=== PATIENT | female | born 1975 | race Caucasian/White ===

== ENCOUNTER → 2016-06-27 | Outpatient (CLI) | payer BC, OTHER ==
--- NOTE | 2016-06-27 09:56 | CT ---
EXAMINATION TYPE: CT brain wo con DATE OF EXAM: 06/27/2016 9:28 AM COMPARISON: NONE HISTORY: Concussion CT DLP: 1147 mGycm Automated exposure control for dose reduction was used. Helical acquisition through the brain. FINDINGS: There is no acute intracranial hemorrhage, mass effect, or midline shift identified. The ventricles and sulci are within normal limits in size. The globes are intact and the visualized sinuses are semaj ar. IMPRESSION: No acute intracranial hemorrhage, mass effect, or midline shift is seen.
== END | disposition home or self-care (01) ==
LOC: RADCTMAIN 09:10
PROVIDERS: ATTEND Family Medicine
DX: S06.0X0A Concussion without loss of consciousness, initial encounter (principal)
CPT/HCPCS: 70450

== ENCOUNTER → 2016-07-17 | Outpatient (CLI) | payer BC, OTHER ==
--- NOTE | 2016-07-17 14:19 | FL ---
EXAMINATION: Cervical and Thoracic Esophagram DATE OF EXAM: 07/17/2016 11:12 AM CLINICAL INDICATION: 41-year-old female with skull and lumps removed 2 months ago, patient stated lupe e type of cysts. Patient complaining of throat swelling sensation. COMPARISON: Total Fluoroscopy Time: 3.9 minutes FINDINGS: The swallowing mechanism is normal and hypopharyngeal anatomy is preserved. The cervical and thoracic portions have a normal course and caliber and normal motility. The mucosa is normal and no persistent filling defect is encountered. No hiatal hernia is present. Gastroesophageal reflux is not seen during the course of the exam. IMPRESSION: No specific abnormality identified on esophagram.
== END | disposition home or self-care (01) ==
LOC: RADFLWHC 10:09
PROVIDERS: ATTEND Otolaryngology
DX: R13.10 Dysphagia, unspecified (principal); R07.0 Pain in throat
CPT/HCPCS: 74220

== ENCOUNTER → 2016-08-08 | Outpatient (CLI) | payer BC ==
--- NOTE | 2016-08-08 08:51 | US ---
EXAMINATION TYPE: US abdomen complete DATE OF EXAM: 08/08/2016 8:37 AM COMPARISON: NONE CLINICAL HISTORY: R10.9 Abd Pain. LUQ & LLQ pain per patient EXAM MEASUREMENTS: Liver Length: 10.9 cm Gallbladder Wall: 0.2 cm CBD: 0.4 cm Spleen: 9.9 cm Right Kidney: 11.0 x 3.9 x 5.6 cm Left Kidney: 11.1 x 6.0 x 5.6 cm Pancreas: visualized portions wnl Liver: wnl Gallbladder: No stones seen Evidence for sonographic Al's sign: No CBD: wnl Spleen: wnl Right Kidney: No hydronephrosis or masses seen Left Kidney: No hydronephrosis or masses seen Upper IVC: wnl Abd Aorta: wnl The liver is homogenous. The intrahepatic portion of the IVC and proximal abdominal aorta are within normal limits. There is no evidence of cholelithiasis. Common bile duct is unremarkable. The visu alized portions of the pancreas are homogenous. The spleen is unremarkable. Kidneys are symmetric a nd free of hydronephrosis. No renal lesions are seen. IMPRESSION: No significant abnormality seen.
== END | disposition home or self-care (01) ==
LOC: RADUSWWP 08:18
PROVIDERS: ATTEND Family Medicine
DX: R10.9 Unspecified abdominal pain (principal)
CPT/HCPCS: 76700

== ENCOUNTER → 2016-08-23 | Outpatient (CLI) | payer BC ==
--- NOTE | 2016-08-23 11:44 | NM ---
EXAMINATION TYPE: NM hepatobiliary w EF DATE OF EXAM: 08/23/2016 9:28 AM COMPARISON: NONE INDICATION: Abdomen pain TECHNIQUE: After the intravenous administration of 5.4 mCi Tc 99m Mebrofenin hepatobiliary scintigrap hy is performed. Images were obtained immediately post injection. FINDINGS: There is prompt uptake and excretion of radiotracer by the liver. Extrahepatic ducts are identified at 6 minutes. The gallbladder is visualized within 8 minutes. Small bowel activity is noted within 34 minutes. At one hour 8 ounces of oral ensure plus is given to mimic CCK and gallbladder ejection fraction is c alculated at 72 %, which is in the normal range. (Normal >35% and <80%.). IMPRESSION: 1. Normal hepatobiliary scan
== END | disposition home or self-care (01) ==
LOC: RADNMMAIN 07:07
PROVIDERS: ATTEND Family Medicine
DX: R10.9 Unspecified abdominal pain (principal)
CPT/HCPCS: 78226; A9537

== ENCOUNTER → 2016-08-23 | Outpatient (CLI) | payer BC | END | disposition home or self-care (01) | LOC: LABWHC1 09:34 | PROVIDERS: ATTEND Otolaryngology | DX: E06.9 Thyroiditis, unspecified (principal) | CPT/HCPCS: 36415; 84439; 84443; 86376 ==

== ENCOUNTER → 2017-01-25 | Outpatient (CLI) | payer BC ==
[2017-01-25 08:00] LABS: Basophils % (A) 1 %; CH 35.1; CHCM 32.5; Eosinophils # (A) 0.1 k/uL (0-0.7); Eosinophils % (A) 1 %; HCT 42.6 % (34.0-46.0); HDW 2.15; HGB 13.8 gm/dL (11.4-16.0); Luc # (Auto) 0.12; Luc % (Auto) 3; Lymphocytes # (A) 1.3 k/uL (1.0-4.8); Lymphocytes % (A) 34 %; MCH 35.2 pg (25.0-35.0); MCHC 32.4 g/dL (31.0-37.0); MCV 108.7 fL (80.0-100.0); Macrocytosis Moderate; Mean Platelet Volume 8.8; Monocytes # (A) 0.3 k/uL (0-1.0); Monocytes % (A) 9 %; Neutrophils # (A) 1.9 k/uL (1.3-7.7); Neutrophils % (A) 51 %; RBC 3.92 m/uL (3.80-5.40); RDW 13.7 % (11.5-15.5); WBC 3.7 k/uL (3.8-10.6); WBC (Perox) 3.84
== END | disposition home or self-care (01) ==
LOC: LABPAT 07:03
PROVIDERS: ATTEND Obstetrics & Gynecology
DX: Z01.812 Encounter for preprocedural laboratory examination (principal)
CPT/HCPCS: 85025

== ENCOUNTER 2017-01-30 06:30 | Day surgery (SDC) | payer BC ==
[2017-01-23 11:49] VITALS: BMI 26.2
[~2017-01-30 06:30] MED LIST: DEXAMETHASONE SOD PHOSPHATE 10 MG/ML 1 ML VIAL IV ONE; LACTATED RINGERS 1,000 ML IV SCH; MIDAZOLAM 2 MG/2 ML VIAL IV PRN; Pre Op ABX Message 1 EACH MISC MISCELLANE ONE; SCOPOLAMINE 1.5MG/72HR PATCH TRANSDERM ONE
[2017-01-30] MEDS ORDERED: LIDOCAINE 1% 20 ML VIAL (10MG/ML) FOR IV START INTRADERMA ONE (07:00)
[2017-01-30] MEDS: ONDANSETRON 4 MG/2 ML VIAL IVP ONE ×2 (07:03→11:28)
[2017-01-30] MEDS ORDERED: fentaNYL (PF) 50 MCG/ML 2 ML AMP ONE (07:33)
[2017-01-30] MEDS ORDERED: GLYCOPYRROLATE 0.2 MG/ML 2 ML VIAL ONE ×2 (07:33)
[2017-01-30] MEDS ORDERED: LIDOCAINE 1% INJ 10MG/ML (20 ML MDV) ONE (07:33)
[2017-01-30] MEDS ORDERED: PROPOFOL 10 MG/ML 20 ML VIAL IV ONE (07:33)
[2017-01-30] MEDS ORDERED: KETOROLAC 30 MG/ML 1 ML VIAL ONE (07:33)
[2017-01-30] MEDS ORDERED: SUCCINYLCHOLINE CHLORIDE 100 MG/5 ML SYR IV ONE (07:33)
[2017-01-30] MEDS ORDERED: NEOSTIGMINE 1 MG/ML 10 ML VIAL ONE (07:33)
[2017-01-30] MEDS ORDERED: ROCURONIUM BROMIDE 10 MG/ML 10 ML VIAL IV ONE (07:33)
[2017-01-30] MEDS ORDERED: MIDAZOLAM 2 MG/2 ML VIAL ONE (07:33)
[2017-01-30] MEDS ORDERED: HYDROmorphone (PF) 1 MG/ML ONE (07:33)
--- NOTE | 2017-01-30 07:33 | P.HPOB ---
History of Present Illness H&P Date: 01/30/17 Chief Complaint: family planning: menorrhagia Patient is a 41-year-old female with heavy vaginal bleeding and desire for permanent sterilization. Risks/benefits/alternatives to a left scopic tubal with Filshie clips and D&C with NovaSure have been discussed with patient in detail including but not limited to damage to bladder, bowel, vascular injuries , nerve injuries, bleeding, infection, thermal injuries, pain. Her symptoms have been present over the last several months with irregular heavy periods. She is noted to have her menses come every approximately 3 weeks and while it only lasts first to 7 days while she's having her bleeding due to the large clots and heaviness of the bleeding she is unable to function or sometimes leave the house. This is occurring despite the placement of her Mirena IUD. Plan is as above. All questions are answered for her prior to proceeding to the operating room. On physical exam vital signs are stable and afebrile. Heart regular, lungs clear, extremities without pain. Abdomen soft and nontender. Positive bowel sounds are noted. Pelvic exams otherwise unremarkable. She does have ruptured uterus with an anterior cervix. Assessment family planning and menorrhagia. Plan D&C hysteroscopy with NovaSure and lap tubal as Filshie clips. We'll plan to remove Mirena IUD at the same time. Past Medical History Additional Past Medical History / Comment(s): abnormal vaginal bleeding History of Any Multi-Drug Resistant Organisms: None Reported Additional Past Surgical History / Comment(s): removal of growth from throat pt states was benign Past Anesthesia/Blood Transfusion Reactions: No Reported Reaction Smoking Status: Current every day smoker - Past Family History Mother Family Medical History: No Reported History Medications and Allergies Home Medications Medication Instructions Recorded Confirmed Type No Known Home Medications [No 01/23/17 01/30/17 History Known Home Medications] Allergies Allergy/AdvReac Type Severity Reaction Status Date / Time No Known Allergies Allergy Verified 01/30/17 06:50 Exam Osteopathic Statement: *. No significant issues noted on an osteopathic structural exam other than those noted in the History and Physical/Consult. - Vital Signs Vital signs: Vital Signs Temp Pulse Resp BP Pulse Ox 01/30/17 06:42 97.7 F 58 L 16 115/72 98 Intake and Output 01/29/17 01/30/17 01/30/17 22:59 06:59 14:59 Intake Total 300 Balance 300 Intake: IV 300
[2017-01-30] MEDS ORDERED: BUPIVACAINE (PF) 0.25% 30 ML VIAL SQ ONE ×2 (08:00)
[2017-01-30] MEDS ORDERED: LACTATED RINGERS 1,000 ML IV ONE (08:14)
--- NOTE | 2017-01-30 08:21 | P.OP ---
Date of Procedure: 01/30/17 Preoperative Diagnosis: Family planning and menorrhagia Postoperative Diagnosis: Same Procedure(s) Performed: Laparoscopic tubal occlusion with Filshie clips, D&C with hysteroscopy and NovaSure, removal of IUD Implants: Anesthesia: LYNNEA Surgeon: Moises Martínez Estimated Blood Loss (ml): 5 Pathology: other (Uterine curettings) Condition: stable Disposition: same day Indications for Procedure: Operative Findings: Retroverted uterus, otherwise normal anatomy Description of Procedure: Patient was taken to the operating suite where a general anesthetic was found be adequate. She was prepped and draped in the normal sterile fashion and placed in dorsal lithotomy position. Initially a speculum was inserted into the vagina and the anterior lip of the cervix identified and grasped with a Allis clamp. It was then dilated and sounded to 8 cm. Once this was accomplished a uterine manipulator was inserted without difficulty and those instruments were removed. Red rubber catheter was then used to drain the bladder of urine. Gloves were then changed and attention was turned to the abdominal portion of the procedure where 2 mL of quarter percent Marcaine was injected periumbilically. Through this injected anesthetic a 5 mm skin incision was made and through this incision under direct visualization with an optical trocar and sleeve the camera was inserted. Once peritoneal placement was assured gas was allowed to fully insufflate the abdomen and patient's placement steep Trendelenburg position. A second 8 mm skin incision was then made 3 cm above the pubic symphysis in the midline. A second port and sleeve were inserted under direct visualization through this incision. Observations pelvis were done first the right tube than the left tube had a Filshie clip applied 2-3 cm from uterine cornu. Seeing no bleeding from the mesosalpinx instruments were removed and gas was left fully expel from the abdomen. 5 deep breaths were provided during this process. Once this was accomplished with trochars removed 4-0 Vicryl was used to close the incisions subcuticularly. The remaining 8 mL of quarter percent Marcaine was then injected around these incisions. Abdomen was then covered in attention was again returned to the vagina. A weighted speculum was inserted the vagina at this point and the uterine manipulator was removed. Allis clamp was again used to grasp the anterior cervix and the cervix was dilated. Camera was then inserted no gross pathology was noted therefore camera was removed and sharp curettings were obtained. This tissue was collected and placed on Telfa. NovaSure system was then brought in with a length of 4 and a width 4.3 was tested and enabled and then was allowed to burn. The burn lasted 94 seconds. At the conclusion of the burn NovaSure system was removed and camera was reinserted. Excellent burn was noted therefore camera was removed all instruments were then removed. Sponge, lap, needle counts were all correct 2. Patient was then taken to the recovery room in stable and satisfactory condition. Plan - Discharge Summary New Discharge Prescriptions: New Acetaminophen-Codeine 300-30mg [Tylenol #3] 1 tab PO Q4H PRN #30 tablet PRN Reason: Pain Ibuprofen [Motrin] 600 mg PO Q6HR PRN #30 tab PRN Reason: Pain Discharge Medication List Acetaminophen-Codeine 300-30mg [Tylenol #3] 1 tab PO Q4H PRN #30 tablet [Rx] Ibuprofen [Motrin] 600 mg PO Q6HR PRN #30 tab 01/30/17 [Rx] Follow up Appointment(s)/Referral(s): Moises Martínez DO [Doctor of Osteopathic Medicine] - 2 Weeks Activity/Diet/Wound Care/Special Instructions: Heavy lifting, limit stairs and driving, and pelvic rest. If any high temperatures, heavy bleeding, or severe pain call my office Discharge Disposition: HOME SELF-CARE
[2017-01-30 08:45] VITALS: TEMP 97.9
[2017-01-30 08:52] VITALS: RESP 16
[2017-01-30] MEDS: HYDROmorphone 1 MG/ML 1 ML SYRINGE IVP PRN ×2 (09:00→09:15)
[2017-01-30 10:44] VITALS: BP 107/73; PULSE 62
== END 2017-01-30 11:46 | disposition home or self-care (01) ==
LOC: OR 06:30
PROVIDERS: ATTEND Obstetrics & Gynecology
DX: N92.0 Excessive and frequent menstruation with regular cycle (principal); Z30.2 Encounter for sterilization; Z30.432 Encounter for removal of intrauterine contraceptive device; F17.200 Nicotine dependence, unspecified, uncomplicated
CPT/HCPCS: 81025; 88305; 58671; 58563; J2250; J1100; J2710; J2405; J2001; J3010; J1885; J1170; J0330; J2704

== ENCOUNTER → 2017-06-15 | Outpatient (CLI) | payer BC ==
--- NOTE | 2017-06-19 07:07 | US ---
EXAMINATION TYPE: US pelvis complete transvag DATE OF EXAM: 06/15/2017 COMPARISON: NONE CLINICAL HISTORY: R10.2 Pelvic Pain N94.10 Unspecified dyspareunia. Pelvic pain, ablation 2 months a go, tubal ligation TECHNIQUE: Transvaginal (TV) and Transabdominal (TA) Date of LMP: unknown EXAM MEASUREMENTS: Uterus: 7.6 x 3.9 x 6.3 cm Endometrial Stripe: 0.5 cm Right Ovary: 3.2 x 1.6 x 1.9 cm Left Ovary: 3.7 x 2.5 x 1.5 cm 1. Uterus: Retroverted heterogenous in appearance. Posterior mid and fundal noncircumscribed leiomyo mas are suspected. Nabothian cysts noted. Single shadowing punctate calculus. 2. Endometrium: appears wnl 3. Right Ovary: follilces noted 4. Left Ovary: Dominant follicle = 1.8 x 1.3 x 1.7cm 5. Bilateral Adnexa: appears wnl 6. Posterior cul-de-sac: Small volume free fluid noted IMPRESSION: 1. Endometrial thickness is within normal limits measuring 5 mm. 2. Heterogenous myometrium. Although no discrete leiomyomas are seen small leiomyomas are suspected i n the posterior mid and fundal uterus. If this patient is a candidate for uterine artery embolization , enhanced pelvic MR could be performed for further evaluation. 3. Small volume free pelvic fluid, likely physiologic in nature.
== END | disposition home or self-care (01) ==
LOC: RADUSWWP 16:18
PROVIDERS: ATTEND Obstetrics & Gynecology
DX: R10.2 Pelvic and perineal pain (principal); N94.10 Unspecified dyspareunia
CPT/HCPCS: 76830; 76856

== ENCOUNTER → 2017-08-15 | Outpatient (CLI) | payer BC ==
[2017-08-15 16:37] LABS: Anion Gap 10 mmol/L; Blood Urea Nitrogen 11 mg/dL (7-17); Calcium 9.1 mg/dL (8.4-10.2); Carbon Dioxide 25 mmol/L (22-30); Chloride 104 mmol/L (98-107); Glucose 94 mg/dL (74-99); Sodium 139 mmol/L (137-145)
[2017-08-15 16:52] LABS: Basophils % (A) 0 %; Eosinophils % (A) 1 %; HCT 38.6 % (34.0-46.0); HGB 12.7 gm/dL (11.4-16.0); Lymphocytes # (A) 0.8 k/uL (1.0-4.8); Lymphocytes % (A) 16 %; MCH 33.6 pg (25.0-35.0); MCHC 32.8 g/dL (31.0-37.0); MCV 102.3 fL (80.0-100.0); Macrocytosis Slight; Mean Platelet Volume 8.6; Monocytes # (A) 0.3 k/uL (0-1.0); Monocytes % (A) 5 %; Neutrophils # (A) 3.8 k/uL (1.3-7.7); Neutrophils % (A) 77 %; Platelet Count 213 k/uL (150-450); RBC 3.77 m/uL (3.80-5.40); RDW 12.7 % (11.5-15.5)
== END | disposition home or self-care (01) ==
LOC: LABPAT 16:09
PROVIDERS: ATTEND Obstetrics & Gynecology
DX: Z01.812 Encounter for preprocedural laboratory examination (principal)
CPT/HCPCS: 80048; 85025

== ENCOUNTER 2017-08-23 05:32 | Observation (INO) | payer BC ==
[2017-08-22 08:51] VITALS: BMI 27.3
[~2017-08-23 05:32] MED LIST changes: -DEXAMETHASONE SOD PHOSPHATE 10 MG/ML 1 ML VIAL IV ONE; -LACTATED RINGERS 1,000 ML IV SCH; -MIDAZOLAM 2 MG/2 ML VIAL IV PRN; -Pre Op ABX Message 1 EACH MISC MISCELLANE ONE; -SCOPOLAMINE 1.5MG/72HR PATCH TRANSDERM ONE; +ceFAZolin IN SWFI 2 GM/20 ML SYRINGE IVP ONE
[2017-08-23] MEDS ORDERED: SCOPOLAMINE 1.5MG/72HR PATCH TRANSDERM ONE (06:05)
[2017-08-23] MEDS ORDERED: MIDAZOLAM 2 MG/2 ML VIAL IV PRN (06:05)
[2017-08-23] MEDS ORDERED: DEXAMETHASONE SOD PHOSPHATE 10 MG/ML 1 ML VIAL IV ONE (06:05)
[2017-08-23] MEDS ORDERED: LIDOCAINE 1% 20 ML VIAL (10MG/ML) FOR IV START INTRADERMA PRN (06:05)
[2017-08-23] MEDS ORDERED: MORPHINE SULFATE 2 MG/ML SYRINGE IV PRN (06:05)
[2017-08-23] MEDS ORDERED: ONDANSETRON 4 MG/2 ML VIAL IVP ONE (06:05)
[2017-08-23] MEDS: LACTATED RINGERS 1,000 ML IV SCH ×2 (06:27→10:46)
[2017-08-23] MEDS ORDERED: BUPIVACAINE (PF) 0.25% 30 ML VIAL SQ ONE ×3 (07:35→08:07)
--- NOTE | 2017-08-23 07:37 | P.HPOB ---
History of Present Illness H&P Date: 08/23/17 Chief Complaint: Chronic pelvic pain Normal is a 42-year-old female with chronic pelvic pain. She's had essentially years of chronic pelvic pain. She had an IUD in place that we believe was the cause for pain however removal did not change the pain. NSAIDs has not changed the pain. She is unable to function and is in significant panel time and often requires pain medication to just get through her day. She did have a NovaSure ablation in the past and this is likely responsible for her pain as I suspect she has post-ablative syndrome. On physical exam vital signs are stable and afebrile. Heart regular, lungs clear, extremities are without pain. Osteopathic exams unremarkable. Pelvic exam is otherwise unremarkable. Abdomen soft nontender positive bowel sounds are noted. There are no other complaints of GI recovery urogenital issues. Assessment chronic pelvic pain. Post-ablation syndrome. Plan robotic-assisted left scopic hysterectomy with possible JUDI possible BSO. Risks/benefits/alternatives to this procedure were discussed with the patient in detail and included but were not limited to bleeding, infection, damage to bladder/bowel/nurse/vessels. Past Medical History Past Medical History: No Reported History Additional Past Medical History / Comment(s): abnormal vaginal bleeding History of Any Multi-Drug Resistant Organisms: None Reported Past Surgical History: Uterine Ablation Additional Past Surgical History / Comment(s): removal of growth from throat, Past Anesthesia/Blood Transfusion Reactions: No Reported Reaction Smoking Status: Former smoker - Past Family History Mother Family Medical History: No Reported History Medications and Allergies Home Medications Medication Instructions Recorded Confirmed Type No Known Home Medications [No 08/22/17 08/22/17 History Known Home Medications] Allergies Allergy/AdvReac Type Severity Reaction Status Date / Time No Known Allergies Allergy Verified 08/22/17 08:29 Exam Osteopathic Statement: *. No significant issues noted on an osteopathic structural exam other than those noted in the History and Physical/Consult. - Vital Signs Vital signs: Vital Signs Temp Pulse Resp BP Pulse Ox 08/23/17 06:13 97.7 F 61 16 113/81 97
[2017-08-23] MEDS ORDERED: NEOSTIGMINE 1 MG/ML 10 ML VIAL ONE (07:43)
[2017-08-23] MEDS ORDERED: MIDAZOLAM 2 MG/2 ML VIAL ONE (07:43)
[2017-08-23] MEDS ORDERED: LIDOCAINE 1% INJ 10MG/ML (20 ML MDV) ONE (07:43)
[2017-08-23] MEDS ORDERED: SUCCINYLCHOLINE CHLORIDE 100 MG/5 ML SYR IV ONE (07:43)
[2017-08-23] MEDS ORDERED: ROCURONIUM BROMIDE 10 MG/ML 10 ML VIAL IV ONE (07:43)
[2017-08-23] MEDS ORDERED: PROPOFOL 10 MG/ML 20 ML VIAL IV ONE (07:43)
[2017-08-23] MEDS ORDERED: GLYCOPYRROLATE 0.2 MG/ML 2 ML VIAL ONE (07:43)
[2017-08-23] MEDS ORDERED: fentaNYL (PF) 50 MCG/ML 2 ML AMP ONE (07:43)
[2017-08-23] MEDS ORDERED: ONDANSETRON 4 MG/2 ML VIAL IVP PRN (08:59)
[2017-08-23] MEDS ORDERED: Acetaminophen-Codeine 300-30mg TAB PO PRN (08:59)
--- NOTE | 2017-08-23 09:06 | P.OP ---
Date of Procedure: 08/23/17 Preoperative Diagnosis: Pelvic pain: Post-ablative syndrome Postoperative Diagnosis: Same Procedure(s) Performed: Robotic-assisted laparoscopic hysterectomy Anesthesia: JEREL Surgeon: Moises Martínez Front Line Supervisor #1: Paula Rodriguez Estimated Blood Loss (ml): 25 IV fluids (ml): 1,100 Urine output (ml): 100 Pathology: other (Uterus and cervix) Condition: stable Disposition: floor Operative Findings: Normal uterus tubes and ovaries Description of Procedure: patient was taken to the operating suite where a general anesthetic found be adequate. She was prepped and draped in the normal sterile fashion and placed in dorsal lithotomy position. Initially weighted speculum was inserted into the vagina and the anterior lip of the cervix identified and grasped with a single-tooth tenaculum. It was then sounded to 8 cm and dilated. Hailey manipulator with a 3.5 cm cup was then inserted. Stitches were placed at 3 and 9 to assist in removal. All other incidents were then removed and a [place] catheter was placed. Gloves were then changed and attention was turned to the abdominal portion procedure where 2 mL of quarter percent Marcaine were injected periumbilically. Through this injected anesthetic had 8 mm skin incision was made and through this incision under direct visualization with an optical trocar and sleeve the camera was inserted. Once peritoneal placement was assured gas was left insufflate the abdomen fully and patient was then placed in a very steep Trendelenburg position. 2 lateral ports and placed 10 cm from the umbilicus laterally on the right and left sides through 8 mm skin incisions. A fourth port and sleeve was then inserted between the left lateral and the medial incision through 1 cm incision. Left scopic port was then exchanged for robotic port and left scopic was removed from the operative field. Robot was then brought in and docked and a scissor was placed in the one arm and a [place] grasper in the 2. At this point I did break scrub and go to the console. Observations the pelvis were noted. Initially the utero- ovarian ligament was identified cauterized and transected. Broad limited tissues to the fallopian tube were then cauterized and cut. Left fallopian tube was then identified and lateral to the fallopian tube Filshie clip was cauterized and transected and then this tissue was brought together with the remainder of the mesosalpinx tissue to the round ligament. Round ligament was then transected with cautery and then cut anterior posterior leafs the broad ligament were then developed and sterilization vascular was done. Cauterization of the uterine artery was then identified and completed. Bladder flap was then identified undermined with [place] and incised with scissor across face the uterus. Bladder was then completely dissected out of the operative field and attention was turned to the right side of the uterus. It is similar fashion this area was developed. Once this was completed balloon was blown up in the Hailey manipulator and an anterior colpotomy was made. Cup was then followed in a counterclockwise fashion around the cervix cheating head when necessary to maintain excellent hemostasis. Once this was completed uterus was brought into the vaginal area and pedicles were verified to be hemostatic. Instruments were then exchanged for a make suture cut and a cardia grasper and the incision was closed with to OB lock suture. Once this was accomplished pelvis was irrigated no bleeding is noted from the pedicles therefore instruments are removed and gas allowed to expel from the abdomen. 5 deep breaths were provided. At this point I did re-scrub in and do a cystoscopy with excellent flow noted from both ureteral jets and Dr. Rodriguez close the incision subcuticularly with 4-0 Vicryl. The remaining 8 mL of quarter percent Marcaine was then injected around these incisions. Sponge, lap , needle counts were all correct 2. Patient was then taken to the recovery room in stable and satisfactory condition.
[2017-08-23] MEDS ORDERED: HYDROmorphone 0.5 MG/0.5 ML SYRINGE IVP ONE ×2 (09:35→10:09)
[2017-08-23] MEDS: SENNOSIDES-DOCUSATE SODIUM 1 EACH TAB PO SCH ×2 (11:16→19:22)
[2017-08-23] MEDS: KETOROLAC 30 MG/ML 1 ML VIAL IVP PRN ×2 (11:45→19:22)
[2017-08-23] MEDS: Acetaminophen-Codeine 300-30mg TAB PO PRN (14:04)
[2017-08-24] MEDS: KETOROLAC 30 MG/ML 1 ML VIAL IVP PRN ×2 (01:31→08:14)
[2017-08-24] MEDS: LACTATED RINGERS 1,000 ML IV SCH (04:10)
[2017-08-24] MEDS: Acetaminophen-Codeine 300-30mg TAB PO PRN (06:39)
[2017-08-24 06:45] LABS: Basophils % (A) 0 %; Eosinophils # (A) 0.1 k/uL (0-0.7); Eosinophils % (A) 1 %; Lymphocytes # (A) 1.6 k/uL (1.0-4.8); Lymphocytes % (A) 29 %; MCH 33.9 pg (25.0-35.0); MCHC 34.2 g/dL (31.0-37.0); MCV 99.1 fL (80.0-100.0); Mean Platelet Volume 8.2; Monocytes # (A) 0.3 k/uL (0-1.0); Monocytes % (A) 5 %; Neutrophils # (A) 3.4 k/uL (1.3-7.7); Neutrophils % (A) 63 %; Platelet Count 190 k/uL (150-450); RBC 3.53 m/uL (3.80-5.40); RDW 12.5 % (11.5-15.5); WBC 5.4 k/uL (3.8-10.6)
[2017-08-24] MEDS: SIMETHICONE 80 MG CHEWABLE PO PRN ×2 (08:15→12:21)
[2017-08-24] MEDS: SENNOSIDES-DOCUSATE SODIUM 1 EACH TAB PO SCH (08:16)
[2017-08-24 09:48] VITALS: PULSE 64
[2017-08-24 12:26] VITALS: BP 94/61; RESP 16; TEMP 97.6
--- NOTE | 2017-08-24 12:31 | P.DS ---
Providers Date of admission: 08/24/17 03:55 Expected date of discharge: 08/24/17 Attending physician: Moises Martínez Primary care physician: Stated None Hospital Course: Note is doing well postop day 1. She is involuting, voiding and she is tolerating her diet. She is also passing flatus. Vital signs are stable afebrile. Heart regular, lungs clear, extremities without pain. Abdomen soft positive bowel sounds are noted and her incisions are clean dry and intact. She does have some abdominal discomfort from her incisions and we did discuss staging for an extra day, however she wishes to be discharged to home. Therefore she will follow up with me in 1 week. Prescriptions for Tylenol 3 and Motrin have been provided and instructions for discharge thoroughly reviewed and all questions answered. She is stable for discharge this time. Patient Condition at Discharge: Good Plan - Discharge Summary Discharge Rx Participant: Yes New Discharge Prescriptions: New Acetaminophen-Codeine 300-30mg [Tylenol #3] 1 tab PO Q4H PRN #30 tablet PRN Reason: Pain Ibuprofen [Motrin] 600 mg PO Q6HR PRN #30 tab PRN Reason: Pain Discharge Medication List Acetaminophen-Codeine 300-30mg [Tylenol #3] 1 tab PO Q4H PRN #30 tablet [Rx] Ibuprofen [Motrin] 600 mg PO Q6HR PRN #30 tab 08/24/17 [Rx] Follow up Appointment(s)/Referral(s): Moises Martínez DO [Doctor of Osteopathic Medicine] - 08/31/17 2:00 pm (you have an appointment with Dr. Martínez on Thursday, August 31, 2017 at 2:00 pm.) Patient Instructions/Handouts: Pain Management After Surgery (GEN), Laparoscopic Hysterectomy (DC), Laparoscopic Hysterectomy (GEN) Activity/Diet/Wound Care/Special Instructions: No lifting over 5 pounds. No driving, no tub baths, limit steps, no housework. May shower. Leave the steri-strips in place, they will fall off on their own. Call Dr. Martínez if you develop a fever, vaginal bleeding, increase in pain, difficulty in urinating, or if you have any other questions or concerns. Discharge Disposition: HOME SELF-CARE
== END 2017-08-24 14:10 | disposition home or self-care (01) ==
LOC: OR 05:32 → 6PED 09:01 → OR 08-24 03:55 → 6PED 08-24 03:55
PROVIDERS: ADMIT Obstetrics & Gynecology; ATTEND Obstetrics & Gynecology
DX: N80.0 Endometriosis of uterus (principal); N93.9 Abnormal uterine and vaginal bleeding, unspecified; Z98.890 Other specified postprocedural states; G89.29 Other chronic pain; R10.2 Pelvic and perineal pain; Z87.891 Personal history of nicotine dependence
CPT/HCPCS: 58571; S2900; 81025; 85025; 86850; 86900; 86901; 88307

== ENCOUNTER → 2020-12-27 | Outpatient (CLI) | payer OTHER ==
--- NOTE | 2020-12-29 08:27 | MM ---
Reason for exam: screening (asymptomatic). Baseline mammogram. Physical Findings: Nurse did not find any significant physical abnormalities on exam. MG Screening Mammo w CAD Bilateral CC and MLO view(s) were taken. The breast tissue is heterogeneously dense. This may lower the sensitivity of mammography. Asymmetric breast tissue in left upper breast on MLO view. ASSESSMENT: Incomplete: need additional imaging evaluation, BI-RAD 0 RECOMMENDATION: Special view mammogram of the left breast. If lesion persists on supplemental views, image directed ultrasound is recommended. [facility] will attempt to contact patient to return for supplemental views and ultrasound if indicated.
== END | disposition home or self-care (01) ==
LOC: RADMAMWWP 13:08
PROVIDERS: ATTEND Family Medicine
DX: Z12.31 Encounter for screening mammogram for malignant neoplasm of breast (principal)
CPT/HCPCS: 77067

== ENCOUNTER → 2020-12-30 | Outpatient (CLI) | payer OTHER ==
--- NOTE | 2020-12-30 10:43 | MM ---
Reason for exam: additional evaluation requested from abnormal screening. Last mammogram was performed less than 1 month ago. Physical Findings: Nurse did not find any significant physical abnormalities on exam. MG Work Up Mamm w CAD LT ML and spot compression MLO view(s) were taken of the left breast. Prior study comparison: December 27, 2020, bilateral MG screening mammo w CAD. The breast tissue is heterogeneously dense. This may lower the sensitivity of mammography. Left asymmetry is pliable and presumed normal tissue. These results were verbally communicated with the patient and result sheet given to the patient on 12/30/20. ASSESSMENT: Negative, BI-RAD 1 RECOMMENDATION: Return to routine screening mammogram schedule for both breasts.
== END | disposition home or self-care (01) ==
LOC: RADMAMWWP 09:04
PROVIDERS: ATTEND Family Medicine
DX: R92.2 Inconclusive mammogram (principal)
CPT/HCPCS: 77065

== ENCOUNTER → 2024-03-10 | Outpatient (CLI) | payer OTHER ==
--- NOTE | 2024-03-11 11:13 | XR ---
EXAMINATION TYPE: XR wrist complete RT DATE OF EXAM: 03/10/2024 COMPARISON: None HISTORY: Strain obtained TECHNIQUE: 4 view right wrist FINDINGS: No acute fracture or dislocation evident. Joint spaces are preserved. Soft tissues are norm al. If there is pain at the anatomic snuffbox, nuclear medicine bone scan could be performed for addition al evaluation. Follow up exams can be performed 7-10 days from acute trauma and pain. IMPRESSION: 1. No acute osseous abnormality right wrist [facility], , 03/11/2024 11:11 AM
--- NOTE | 2024-03-11 13:09 | XR ---
EXAMINATION TYPE: XR shoulder complete RT DATE OF EXAM: 03/10/2024 COMPARISON: NONE HISTORY: Pain TECHNIQUE: Right Shoulder examined in 3 projections. FINDINGS: The humeral head articulates with the glenoid. The acromio-clavicular junction is normal. No acute fractures or dislocations are evident. A follow up study can be performed 7-10 days from acute trauma for continued pain. MRI can be perfor med if soft tissue evaluation would be of benefit. IMPRESSION: 1. No acute osseous right shoulder abnormality. [facility], , 03/11/2024 1:06 PM
--- NOTE | 2024-03-17 08:38 | XR ---
EXAMINATION TYPE: XR hand complete RT DATE OF EXAM: 03/10/2024 COMPARISON: None HISTORY: Strain, pain TECHNIQUE: Three-view right hand FINDINGS: No acute fracture or dislocation evident. Joint spaces are preserved. Soft tissues appear n ormal. Follow up exams can be performed 7-10 days from acute trauma for continued pain. IMPRESSION: 1. No acute osseous abnormality right hand [facility], Workstation: [facility], 03/17/2024 8:36 AM
== END | disposition home or self-care (01) ==
LOC: RADXRMAIN 17:15
PROVIDERS: ATTEND Emergency Medicine
DX: S46.911A Strain of unspecified muscle, fascia and tendon at shoulder and upper arm level, right arm, initial encounter (principal)